=== PATIENT | female | born 1990 | race Caucasian/White ===

== ENCOUNTER 2018-12-27 07:59 | Observation (INO) | payer BC, OTHER ==
[2018-12-27] MEDS ORDERED: EPINEPHrine,Rac 2.25% NEB.SOL* 0.5 ML INH ONE (08:14)
[2018-12-27] MEDS ORDERED: Dexamethasone IV* 4 MG/ML 5 ML VIAL (20 MG) IVPB ONE (08:15)
[2018-12-27] MEDS ORDERED: Dexamethasone IV* 4 MG/ML 1 ML (4 MG) ONE (08:16)
[2018-12-27] MEDS ORDERED: NS 0.9% 1000 ML** 1,000 ML IV ONE (08:17)
--- NOTE | 2018-12-27 08:18 | ED ---
Throat Pain/Nasal Congestion - HPI Summary HPI Summary: Pt. is a 28 y.o female who presents to the ER for throat pain and shortness of breath. Pt. states she started with a sore throat yesterday and this morning noticed difficulty breathing and swallowing. Pt. states she severe throat pain. She does have a history of asthma but states that she does not feel she is wheezing. Pt. denies other past medical hx. Denies fever, chills, h/a, cough, abd. pain, V/D. Symptoms are moderate in severity. No current modifying factors. - History of Current Complaint Chief Complaint: EDShortnessOfBreath Time Seen by Provider: 12/27/18 08:09 Hx Obtained From: Patient - Allergies/Home Medications Allergies/Adverse Reactions: Allergies Allergy/AdvReac Type Severity Reaction Status Date / Time No Known Allergies Allergy Verified 12/27/18 08:01 Home Medications: Home Medications Albuterol HFA INHALER* [Ventolin HFA Inhaler*] 1 puff INH Q6H PRN 12/27/18 [ History Confirmed 12/27/18] PMH/Surg Hx/FS Hx/Imm Hx Previously Healthy: Yes Infectious Disease History: No Infectious Disease History: Denies: Traveled Outside the [place] in Last 30 Days - Family History Known Family History: Positive: Non-Contributory - Social History Occupation: Employed Full-time Lives: Alone Alcohol Use: None Substance Use Type: Reports: None Smoking Status (MU): Light Every Day Tobacco Smoker Review of Systems Constitutional: Negative Negative: Fever, Chills Eyes: Negative Positive: Sore Throat Cardiovascular: Negative Positive: Shortness Of Breath. Negative: Cough Gastrointestinal: Negative Skin: Negative Neurological: Negative All Other Systems Reviewed And Are Negative: Yes Physical Exam Triage Information Reviewed: Yes Vital Signs On Initial Exam: Initial Vitals Temp Pulse Resp BP Pulse Ox 98.6 F 93 25 137/89 100 12/27/18 08:00 12/27/18 08:00 12/27/18 08:00 12/27/18 08:00 12/27/18 08:00 Vital Signs Reviewed: Yes Appearance: Positive: Well-Nourished - Pt. sitting up in bed with stridorous breathing. Voice is very hoarse., Ill-Appearing Skin: Positive: Warm, Dry Head/Face: Positive: Normal Head/Face Inspection Eyes: Positive: Normal, EOMI, CHRISTY, Conjunctiva Clear ENT: Positive: Other - Oral pharynx without erythema or edema. Uvula is midline without deviation or edema. No drooling or pooling of secretions. Voice is hoarse. Neck: Positive: Supple, Nontender, No Lymphadenopathy. Negative: Nuchal Rigidity Respiratory/Lung Sounds: Positive: Clear to Auscultation, Breath Sounds Present , Stridor. Negative: Rales, Rhonchi, Wheezes Cardiovascular: Positive: Normal, RRR Neurological: Positive: Normal, Alert, Oriented to Person Place, Time, CN Intact II-III Psychiatric: Positive: Anxious AVPU Assessment: Verbal (Reponds To) Diagnostics - Vital Signs Vital Signs Temp Pulse Resp BP Pulse Ox 12/27/18 08:00 98.6 F 93 25 137/89 100 - Laboratory Result Diagrams: 12/27/18 08:25 12/27/18 08:25 Lab Statement: Any lab studies that have been ordered have been reviewed, and results considered in the medical decision making process. EENT Course/Dx - Course Course Of Treatment: Patient presenting for severe throat pain and stridorous breathing. She is afebrile. Oxygen saturation is 100% room air which is normal. Patient has a history of asthma but has no wheezes on exam. Patient is maintaining her airway at this time. Patient was evaluated by Dr. Calhoun immediately as well. Concern for possible upper airway obstruction, epiglottitis. IV was placed patient was given 10 mg of IV Decadron of fluids. Racemic epinephrine breathing treatment given as well. CBC shows a leukocytosis of 19,000. Negative strep and mono. Lateral soft tissue x-ray is unremarkable, reading per radiology. 1015: On reexamination patient is sleeping but still stridorous breathing. Patient awoke easily and states she is not feeling much better since medication. Hospitalist was consulted for admission for observation the patient's airway. I spoke with Dr. Calvo and he agrees to admit pt. to his service. Pt. has remained stable in the ED. - Differential Diagnoses Differential Diagnoses: Epiglottitis, Qasim's Angina, Periodontic Abscess, Pharyngitis - Diagnoses Provider Diagnoses: Pharyngitis, Inspiratory stridor Discharge - Sign-Out/Discharge Documenting (check all that apply): Patient Departure Patient Received Moderate/Deep Sedation with Procedure: No - Discharge Plan Condition: Stable Disposition: ADMITTED TO [facility] Referrals: No Primary Care Phys,NOPCP [Primary Care Provider] - - Billing Disposition and Condition Condition: STABLE Disposition: Admitted to [facility]
[2018-12-27] MEDS ORDERED: Dexamethasone IV* 4 MG/ML 1 ML (4 MG) IV SLOW PU ONE (08:21)
--- NOTE | 2018-12-27 08:22 | ED ---
Progress - Progress Note Progress Note: This patient was signed out from ROBYN Triplett, for an evaluation. The patient reports that she lost her voice this morning and has had SOB and sore throat. She denies fever, chills, nausea or vomiting. He denies a Hx of allergies. She has a Hx of asthma and has an inhaler. Her LNMP was three weeks ago. She reports smoking 1/2 ppd and not getting a flu shot. Vital signs while in room - HR: 89 bpm, O2 Sat: 99 Physical Exam - Summary Physical Exam Summary: GENERAL: Patient is a well-developed and nourished F who is lying comfortable in the stretcher. Patient is not in any acute respiratory distress. HEAD AND FACE: Normocephalic EYES: PERRLA, EOMI x 2. EARS: Hearing grossly intact. MOUTH: Oropharynx within normal limits. NECK: Supple, trachea is midline, no adenopathy, no JVD, no carotid bruit. CHEST: Symmetric, no tenderness at palpation LUNGS: Clear to auscultation bilaterally. No wheezing or crackles. CVS: Regular rate and rhythm, S1 and S2 present, no murmurs or gallops appreciated. ABDOMEN: Soft, non-tender. Bowel sounds are normal. No abdominal abnormal pulsations. EXTREMITIES: Full ROM in all major joints, no edema, no cyanosis or clubbing. NEURO: Alert and oriented x 3. No acute neurological deficits. Speech is normal and follows commands. SKIN: Dry and warm Triage Information Reviewed: Yes Vital Signs On Initial Exam: Initial Vitals Temp Pulse Resp BP Pulse Ox 98.6 F 93 25 137/89 100 12/27/18 08:00 12/27/18 08:00 12/27/18 08:00 12/27/18 08:00 12/27/18 08:00 Vital Signs Reviewed: Yes Course/Dx - Course Course Of Treatment: This patient was signed out from ROBYN Triplett, for an evaluation. The patient reports that she lost her voice this morning and has had SOB and sore throat. She denies fever, chills, nausea or vomiting. He denies a Hx of allergies. She has a Hx of asthma and has an inhaler. Her LNMP was three weeks ago. She reports smoking 1/2 ppd and not getting a flu shot. Vital signs while in room - HR: 89 bpm, O2 Sat: 99. The physical exam was unremarkable, revealing that her lungs were clear. The patient will be signed back out to ROBYN Triplett, for further workup. - Diagnoses Provider Diagnoses: Pharyngitis Discharge - Sign-Out/Discharge Documenting (check all that apply): Sign-Out Patient, Receiving Sign-Out Signing out patient TO: Paresh Reyes Receiving patient FROM: Paresh Reyes - Discharge Plan Condition: Stable Disposition: ADMITTED TO [facility] - Billing Disposition and Condition Condition: STABLE Disposition: Admitted to [facility] - Attestation Statements Document Initiated by Busteribe: Yes Documenting Scribe: Jonny rGay Provider For Whom Busteribe is Documenting (Include Credential): Jessica Calhoun MD Scribe Attestation: Jonny Higgins scribed for Jessica Calhoun MD on 12/27/18 at 1841. Scribe Documentation Reviewed: Yes Provider Attestation: The documentation as recorded by the Jonny whittaker accurately reflects the service I personally performed and the decisions made by Mirta sexton MD Status of Scribe Document: Viewed
[2018-12-27 08:32] LABS: Hematocrit 39 % (35-47); Mean Corpuscular HGB Conc 33 g/dl (31-36); Mean Corpuscular Hemoglobin 30 pg (27-31); Mean Corpuscular Volume 90 fL (80-97); Mean Platelet Volume 7.9 fL (7.4-10.4); Platelet Count 253 10^3/ul (150-450); Red Blood Count 4.37 10^6/ul (4.00-5.40); Red Cell Distribution Width 13 % (10.5-15); White Blood Count 19.3 10^3/ul (3.5-10.8)
[2018-12-27 08:56] LABS: ALT 20 U/L (7-52); AST 16 U/L (13-39); Albumin 3.8 g/dL (3.2-5.2); Albumin/Globulin Ratio 1.4 (1-3); Alkaline Phosphatase 97 U/L (34-104); Anion Gap 7 mmol/L (2-11); BUN/Creatinine Ratio 10.8 (8-20); Blood Urea Nitrogen 7 mg/dL (6-24); C Reactive Protein 65.08 mg/L (<8.01); CO2 Carbon Dioxide 21 mmol/L (22-32); Calcium 8.5 mg/dL (8.6-10.3); Chloride 107 mmol/L (101-111); EGFR African American 131.3 (>60); EGFR Non-African American 108.5 (>60); Globulin 2.8 g/dL (2-4); Glucose 102 mg/dL (70-100); Potassium 3.7 mmol/L (3.5-5.0); Sodium 135 mmol/L (135-145); Total Protein 6.6 g/dL (6.4-8.9)
[2018-12-27 09:38] LABS: ABS Basophils 0 10^3/ul (0-0.2); ABS Eosinophils 0.1 10^3/ul (0-0.6); ABS Lymphocytes 1.3 10^3/ul (1.0-4.8); ABS Neutrophils 15.8 10^3/ul (1.5-7.7); ABS Nucleated RBC 0 10^3/ul; Eosinophil % 0.6 %; Lymphocyte % 6.6 %; Nucleated Red Blood Cells % 0
[2018-12-27] MEDS ORDERED: Clindamycin 900 MG IVPREMIX(* 900 MG/50 ML SDV IV ONE (09:59)
[2018-12-27 11:17] LABS: HCG Pregnancy < 0.60 mIU/mL
[2018-12-27] MEDS ORDERED: Dexamethasone IV* 4 MG in NS 0.9% 50 ML* 50 ML IVPB SCH (12:00)
[2018-12-27 12:01] LABS: Influenza A Molecular NEGATIVE (Negative); Influenza B Molecular NEGATIVE (Negative)
--- NOTE | 2018-12-27 12:31 | ADMNOTE ---
Subjective Date of Service: 12/27/18 Interval History: HISTORY and PHYSICAL PCP: none CC: throat pain HPI: 28 year old woman with PMH of asthma developed pharyngitis 1 day prior to admission. She denies fever. She was coughing, but did not have wheezing or other asthma symptoms. Today throat pain was much worse, came to ER. In ER there was initial concern re epiglotitis, patient received inhaled racemic epinephrine and IV decadron. Denies chest pain, does feel SOB. Saw ENT in [facility] 1 year ago, was told epiglottis was inflamed by GERD. Takes omeprazole PRN. 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, smokes 1/2 PPD, no alcohol or drug use Review of Systems - Measurements Intake and Output: Intake and Output Last 24 Hours 12/25/18 12/26/18 12/27/18 12/28/18 05:59 06:59 06:59 06:59 Intake Total 1050 Balance 1050 Weight 104.326 kg Intake: IV Fluids 1050 - Review of Systems Constitutional Symptoms: Positive: Fatigue Negative: Fever Dermatology: Positive: Normal HEENT: Positive: Other - throat pain, odynophagia Negative: Change in Hearing Eyes: Positive: Normal Thyroid: Positive: Normal Pulmonary: Positive: Cough, Shortness of Breath, Asthma Negative: Wheezing Cardiology: Positive: Normal Gastroenterology: Positive: Normal Genital - Urinary: Positive: Normal Genitourinay - Female: Positive: Menses Normal Musculoskeletal: Negative: Joint Pain Endocrinology: Positive: Normal Hematologic/Lymphatic: Negative: Anemia Neurology: Positive: Normal Psychiatry: Positive: Normal Allergic/Immunologic: Positive: Athsma Objective Active Medications: Home Medications: Albuterol MDI prn omeprazole PRN Vital Signs - 8 hr 12/27/18 12/27/18 12/27/18 08:00 08:31 08:32 Temperature 37.0 C Pulse Rate 93 82 72 Respiratory 25 14 Rate Blood Pressure 137/89 (mmHg) O2 Sat by Pulse 100 100 99 Oximetry 12/27/18 12/27/18 12/27/18 09:00 10:00 10:27 Temperature Pulse Rate 66 70 69 Respiratory Rate Blood Pressure 121/78 (mmHg) O2 Sat by Pulse 100 99 97 Oximetry 12/27/18 12/27/18 12/27/18 10:57 11:00 11:27 Temperature Pulse Rate 77 71 69 Respiratory Rate Blood Pressure 124/81 113/78 (mmHg) O2 Sat by Pulse 99 99 99 Oximetry 12/27/18 12/27/18 12/27/18 11:57 12:00 12:13 Temperature 36.7 C Pulse Rate 69 69 69 Respiratory 22 Rate Blood Pressure 131/92 131/92 (mmHg) O2 Sat by Pulse 98 99 99 Oximetry Oxygen Devices in Use Now: None Appearance: alert, mild resp distress Eyes: No Scleral Icterus Ears/Nose/Mouth/Throat: NL Teeth, Lips, Gums Neck: NL Appearance and Movements; NL JVP, Trachea Midline, No Thyroid Enlargement, Masses, - - stridor inspiratory present Respiratory: Symmetrical Chest Expansion and Respiratory Effort, Clear to Auscultation, Clear to Percussion Cardiovascular: NL Sounds; No Murmurs; No JVD Abdominal: NL Sounds; No Tenderness; No Distention Lymphatic: No Cervical Adenopathy, No Axillary Adenopathy Extremities: No Edema Skin: No Rash or Ulcers Neurological: Alert and Oriented x 3 Lines/Tubes/Other Access: Clean, Dry and Intact Peripheral IV Nutrition: Taking PO's Result Diagrams: 12/27/18 08:25 12/27/18 08:25 Additional Lab and Data: Laboratory Tests 12/27/18 12/27/18 12/27/18 08:25 08:25 09:01 Calcium 8.5 L C-Reactive Protein 65.08 H Beta HCG, Quant < 0.60 Monoscreen Negative Influenza A (Rapid) Influenza B (Rapid) Group A Strep Rapid Negative 12/27/18 11:50 Calcium C-Reactive Protein Beta HCG, Quant Monoscreen Influenza A (Rapid) Negative Influenza B (Rapid) Negative Group A Strep Rapid Microbiology and Other Data: Microbiology 12/27/18 11:35 Influenza Types A,B Antigen - Final Nasal Specimen received for Influenza A/B Molecular testing 12/27/18 08:56 Group A Streptococcus Rapid Screen - Final Throat Specimen received for Rapid Strep A Molecular testing Diagnostic Imaging: lateral soft tissue neck: epiglottis normal CXR: no infiltrate/effusion Assess/Plan/Problems-Billing Assessment: - Patient Problems (1) Inspiratory stridor Current Visit: Yes Status: Acute Priority: High Code(s): R06.1 - STRIDOR SNOMED Code(s): 03644457 Comment: -Throat pain and stridor concerning for epiglotitis, ludwigs angina , peritonsilar abscess, but patient may also have viral pharyngitis -Will observe overnight, follow O2 saturation carefully. -May benefit from humidified O2 -Will have ENT consult if clinical condition worsens. (2) Asthma Current Visit: Yes Status: Acute Priority: Medium Code(s): J45.909 - UNSPECIFIED ASTHMA, UNCOMPLICATED SNOMED Code(s): 631510640 Comment: -Asthma does not appear to be exacerbated -will start albuterol nebs PRN Status and Disposition: observation status
[2018-12-27] MEDS: Albuterol 2.5 MG/3 ML NEB.SOL* (0.083%) INH PRN ×2 (12:37→22:34)
[2018-12-27] MEDS: Dexamethasone IV* 4 MG/ML 1 ML (4 MG) IV SLOW PU SCH ×2 (13:05→20:01)
[2018-12-27] MEDS: LORazepam INJ* 2 MG/ML 1 ML VIAL IV PUSH PRN ×2 (15:01→21:40)
[2018-12-27] MEDS: Clindamycin 300 MG IVPREMIX(* 300 MG/50 ML SDV IV SCH ×2 (17:19→21:41)
[2018-12-27] MEDS ORDERED: Ibuprofen TAB* 600 MG PO PRN (20:23)
[2018-12-27] MEDS ORDERED: Ibuprofen TAB* 600 MG ONE (20:26)
[2018-12-27 20:28] VITALS: BP 137/69
[2018-12-27] MEDS ORDERED: Pantoprazole TAB * 40 MG TAB PO SCH (22:00)
[2018-12-27] MEDS ORDERED: predniSONE TAB* 50 MG PO ONE (22:23)
--- NOTE | 2018-12-28 03:22 | DS ---
DISCHARGE SUMMARY: DATE OF ADMISSION: 12/27/18 DATE OF DISCHARGE: 12/27/18 PRIMARY CARE PROVIDER: None. MY ATTENDING WHILE IN THE HOSPITAL: Dr. Hayes.* (DICTATED BY ROBYN THAKKAR) PRIMARY DISCHARGE DIAGNOSIS: Respiratory failure, concern for epiglottitis. SECONDARY DISCHARGE DIAGNOSES: 1. Asthma. 2. Reflux. STUDIES DONE WHILE IN THE HOSPITAL: Soft tissue neck x-ray read as unremarkable soft tissues of the neck. The epiglottis is normal. Chest x-ray read as no evidence for acute intrathoracic disease. MEDICATIONS AT DISCHARGE: 1. Albuterol inhaler 1 puff inhalation q.6 hours as needed. 2. Clindamycin 300 mg p.o. q.6 hours for 6 more days. 3. Ibuprofen 600 mg p.o. q.6 hours as needed. 4. Pantoprazole 40 mg p.o. daily. 5. Prednisone 60 mg p.o. daily with rapid taper. New Medications At Discharge: 1. Clindamycin. 2. Ibuprofen. 3. Pantoprazole. 4. Prednisone. HOSPITAL COURSE: This is a brief summary of the patient's presentation. For more details, please see the admission notes from Dr. Nito Calvo on . 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 Patient was given antibiotics, Decadron, and racemic epinephrine in the emergency department. Patient was admitted to the hospital for observation. Patient was not needing oxygen. Patient had a normal epiglottis as above. Patient did not have any signs of systemic symptoms. Patient did have an elevated white blood cell count at 19.3 and elevated CRP. Patient had no lower airway wheezing to indicate asthma exacerbation. Patient stayed stable throughout the day on IV Decadron, ibuprofen, clindamycin IV, and albuterol inhalers. Patient, however, became anxious being in the hospital. Patient received lorazepam, which did not help. Patient stated that she was unwilling to stay in the hospital. It was discussed with the patient that epiglottitis and other inflammatory diseases from the posterior pharynx can progress rapidly and may need immediate intervention such as intubation and if patient stayed till the morning and not improve, she would likely need an ENT evaluation to do a laryngoscopy to evaluate the dysplastic changes previously known to her epiglottis. Despite this, patient insisted upon leaving, stating that she was too anxious to stay in the hospital. Patient was provided prescriptions for oral antibiotics, prednisone taper, repeat prescription for inhaler, and instructions on what symptoms would necessitate returning to the hospital. Patient was provided with a number for local ENT and instructed to call and make an appointment as soon as possible. Patient left the facility against medical advice in the evening of 12/27/18. TIME SPENT: Approximately 45 minutes were spent on the discharge of this patient, 30 of which were spent [id number] with the patient obtaining history and physical and discussing treatment plan. ROBYN THAKKAR [id number]/CPS #: [id number] MEGAN
== END 2018-12-27 22:45 | disposition left against medical advice (07) ==
LOC: ED 07:59 → MEDTELE 11:31
PROVIDERS: ADMIT Internal Medicine; ATTEND Student in an Organized Health Care Education/Training Program
DX: J96.90 Respiratory failure, unspecified, unspecified whether with hypoxia or hypercapnia (principal); J02.9 Acute pharyngitis, unspecified; J45.909 Unspecified asthma, uncomplicated; K21.9 Gastro-esophageal reflux disease without esophagitis; F17.210 Nicotine dependence, cigarettes, uncomplicated; Z53.21 Procedure and treatment not carried out due to patient leaving prior to being seen by health care provider
CPT/HCPCS: 36415; 70360; 71045; 80053; 84702; 85025; 86140; 86308; 87651; 94640; 96365; 96375; 96376; 99284; A9270-GY; G0378; J1100; J2060; J7512